=== PATIENT | female | born 1955 ===

== ENCOUNTER 2017-10-11 06:26 | Day surgery (SDC) | payer MEDICAID ==
[2017-10-11 06:54] VITALS: BMI 25.0
[2017-10-11] MEDS ORDERED: Lactated Ringer's 500 ML IV ONE (09:00)
[2017-10-11] MEDS ORDERED: Lidocaine Hydrochloride 5 ML INJ ONE (09:03)
[2017-10-11] MEDS ORDERED: Propofol 10 mg/ml Inj (20 ML) ONE (09:03)
[2017-10-11 09:15] VITALS: O2SAT 100
[2017-10-11] MEDS ORDERED: Simethicone 40 mg/0.6 ml Liquid (30 ml) ONE (09:25)
[2017-10-11 13:10] VITALS: BP 129/61; PULSE 61; RESP 19; TEMP 96.9
== END 2017-10-11 10:50 | disposition home or self-care (01) ==
LOC: C.ENDO 06:26
PROVIDERS: ATTEND Internal Medicine Gastroenterology
DX: Z12.11 Encounter for screening for malignant neoplasm of colon (principal); Z86.010 Personal history of colon polyps; K29.70 Gastritis, unspecified, without bleeding; K21.0 Gastro-esophageal reflux disease with esophagitis; K64.8 Other hemorrhoids; Z79.899 Other long term (current) drug therapy; I10 Essential (primary) hypertension
CPT/HCPCS: 43239; 45378; 88305; J2704; J7120